=== PATIENT | female | born 1975 | race African-American/Black ===

== ENCOUNTER 2017-03-26 12:41 | Inpatient (IN) ==
[2017-03-26] MEDS ORDERED: NS 1,000 ML IV ONE (13:08)
[2017-03-26 13:54] LABS: URINE CULTURE PL NEEDED? NO
[2017-03-26 13:58] LABS: BILIRUBIN URINE NEGATIVE (NEGATIVE); BLOOD URINE 3+ (NEGATIVE); CLARITY CLEAR (CLEAR); COLOR YELLOW; GLUCOSE URINE NEGATIVE (NEGATIVE); LEUKOCYTES URINE NEGATIVE (NEGATIVE); NITRITE URINE NEGATIVE (NEGATIVE); PH URINE 6.5; PROTEIN URINE NEGATIVE (NEGATIVE); SP GRAVITY URINE 1.015; URINE SOURCE CLEAN CATCH; UROBILINOGEN URINE NORMAL
[2017-03-26 13:59] LABS: URINE EPITHELIAL CELLS <10 /HPF (<10); URINE RBC <10 /HPF (<10); URINE WBC <10 /HPF (<10)
[2017-03-26 14:15] LABS: BASO% 0.2 % (0.0-0.8); EOS# 0.23 X1000 (0.0-0.7); EOS% 3.9 % (0.0-10.0); HEMATOCRIT 28.6 % (37.0-47.0); HEMOGLOBIN 9.2 g/dL (12.0-16.0); IMM GRAN# 0.02 X1000 (0.0-0.04); IMM GRAN% 0.3 % (0.0-0.5); LYMPH# 2.07 X1000 (1.2-3.4); MANUAL DIFF NEEDED? NO; MCH 20.3 PG (27-31); MCHC 32.2 g/dL (33-37); MONO# 0.84 X1000 (0.11-0.59); MONO% 14.2 % (1.7-9.3); NEUT% 46.4 % (42.2-75.2); PLT 166 X1000 (130-400); RBC 4.54 XMIL (4.2-5.4)
[2017-03-26 14:21] LABS: AGAP 14; ALBUMIN 4.4 g/dL (3.5-5.0); ALKALINE PHOSPHATASE 52 U/L (32-104); AMYLASE 102 U/L (20-200); BUN 11 mg/dL (8-22); CHLORIDE 100 mmol/L (98-107); COSMO 271; GOT 51 U/L (10-30); GPT 39 U/L (10-36); LIPASE 64 U/L (13-60); SODIUM 136 mmol/L (136-145); TCO2 22 mmol/L (25-35); TOTAL PROTEIN 8.6 g/dL (6.3-8.3)
[2017-03-26 14:34] LABS: OCCULT BLOOD 1 POSITIVE (NEGATIVE)
--- NOTE | 2017-03-26 15:46 | Diag Imaging Result Doc PS360 ---
EXAM: CT ABD/PELVIS W/ IV CONT ONLY HISTORY: Lower GI bleed TECHNIQUE: Axial images of the abdomen and pelvis with IV contrast. Evaluation of the bowel is limited by lack of oral contrast. COMPARISON: 03/05/2015 FINDINGS: There is diffuse hepatic steatosis. There is a calcification posterior to the liver. There is an unchanged calcification left kidney. There is a phlebolith adjacent to the right proximal ureter which is unchanged from the prior study. There is a small fat-containing umbilical hernia. There is no free fluid or free air. The uterus is enlarged and lobular suggesting fibroids. There is no evidence for acute appendicitis..There is no colonic wall thickening or pericolonic inflammation appreciated. There remainder of the solid visceral organs is unremarkable there are calcifications within the upper pelvis bilaterally which likely represent phleboliths. IMPRESSION: No evidence for obstruction or acute bowel pathology given the limitations of the absence of oral contrast media. Hepatic steatosis. Fibroid uterus. Electronically signed by Emelia Maza 03/26/2017 3:43 PM
[2017-03-26 16:18] LABS: HEMATOCRIT 26.9 % (37.0-47.0); HEMOGLOBIN 8.7 g/dL (12.0-16.0)
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
[2017-03-26] MEDS ORDERED: ZOFRAN IV PRN (18:02)
[2017-03-26] MEDS ORDERED: PROTONIX 80 MG in NS 80 ML IV ONE ×2 (18:04→19:00)
[2017-03-26] MEDS ORDERED: PROTONIX 80 MG in NS 80 ML IV SCH (18:05)
[2017-03-26] MEDS ORDERED: PROTONIX IV SCH (18:15)
[2017-03-26] MEDS ORDERED: SODIUM CHLORIDE 0.9% INJ SCH (18:15)
[2017-03-26] MEDS: PROTONIX 80 MG in NS 80 ML IV SCH (19:35)
[2017-03-26] MEDS ORDERED: DULCOLAX PO ONE (20:40)
[2017-03-26] MEDS ORDERED: MIRALAX PO ONE ×2 (20:40→21:15)
[2017-03-26] MEDS ORDERED: SANDOSTATIN IV ONE (20:44)
[2017-03-26 20:53] LABS: HEMATOCRIT 26.5 % (37.0-47.0); HEMOGLOBIN 8.6 g/dL (12.0-16.0)
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
[2017-03-26 21:09] LABS: INR 0.97; PROTIME 10.2 Seconds (9.2-11.7); PTT 22.3 Seconds (22.0-36.0)
--- NOTE | 2017-03-26 21:39 | HISTORY AND PHYSICAL ---
CHIEF COMPLAINT: Diarrhea with bright red blood. HISTORY OF PRESENT ILLNESS: This is a 41-year-old female with no prior health history who presents to the emergency room complaining of diarrhea x2 days with bright red bleeding mixed in with the stool that started earlier today. She stated that she has had some abdominal cramps during these episodes of diarrhea, but it does subside once she has passed stool. She denies any prior history of GI bleed. She does state that she takes 4-6 Goody powders a day, sometimes more and she had this for quite a few years. She takes them for any pain sometimes, just to make sure she does not have pain. She denies any nausea, vomiting, reflux. She denies any dizziness on standing. She was found to have a hemoglobin of 9.2, hematocrit 28.6. On arrival to the emergency room. Hemoccult stool revealed red blood per ER MD. They did repeat a hemoglobin and hematocrit at 4 o'clock which was about 2-1/2 hours after, that was 8.7 and 26.9. PAST MEDICAL HISTORY: Denies. PAST SURGICAL HISTORY: Tubal ligation. SOCIAL HISTORY: She denies illicit drug use or tobacco use. She does drink 3 or 4 beers on the weekend, but not every week weekend. ALLERGIES: No known drug allergies. HOME MEDICATIONS: Goody powders. REVIEW OF SYSTEMS: A 14-point review of systems is discussed with patient with pertinent positives stated in the HPI. She denies chest pain, palpitations, dizziness, syncope, any nausea, vomiting, constipation, any shortness of breath, cough, fever, chills, hematuria, dysuria, frequency, urgency. PHYSICAL EXAMINATION: GENERAL: This is a 41-year-old female, who is lying in the bed, in no distress. VITAL SIGNS: Blood pressure is 119/75 with a heart rate of 106, respirations are 18, temperature is 98 degrees with room air saturations 96%. HEENT: Head is normocephalic, atraumatic. Pupils are equal, round, react to light. EOMs are intact. Sclerae are anicteric. Mucous membranes are moist. NECK: Supple with trachea midline. CARDIOVASCULAR: Regular rate and rhythm. S1 and S2 are appreciated. PULMONARY: Breath sounds are clear with no increased work of breathing noted. GASTROINTESTINAL: Abdomen is soft, nontender, nondistended with bowel sounds in all 4 quadrants. BACK: No CVAT. No spine tenderness. MUSCULOSKELETAL: Good range of motion to joints. NEUROLOGIC: She is alert and oriented x3 with cranial nerves 2-12 grossly intact. SKIN: Warm and dry with no rashes or lesions noted. DIAGNOSTICS: WBC is 5.9 with hemoglobin 9.2 and 28.6 at 1:30. At 4 o'clock, hemoglobin was 8.7 with hematocrit 26.9, platelets are 166,000. Sodium is 136, potassium 4, BUN 11, creatinine 0.8 with stool occult positive. ASSESSMENT AND PLAN: 1. Gastrointestinal bleed. 2. Diarrhea. 3. Abuse of Goody powders. PLAN: She will be admitted to CICU at [facility] [place]. She will remain nothing per oral. Dr. Smith in Gastroenterology has been consulted. We will type and cross and have 2 units on hand. We will repeat her hemoglobin and hematocrit at 8 o'clock and will trend. We will start a Protonix drip with a Protonix bolus. We will get a stat PT and PTT. We will gently hydrate. We will check orthostatics. Further treatments pending hospital course. Dictated by JESUS Kebede for Chavo Chino MD cc: JESUS Kebede MD
[2017-03-26] MEDS: SANDOSTATIN 500 MICROGM in D5W 100 ML IV SCH (21:43)
[2017-03-26] MEDS: NS 1,000 ML IV SCH (21:44)
[2017-03-27 01:47] LABS: HEMATOCRIT 23.8 % (37.0-47.0); HEMOGLOBIN 7.7 g/dL (12.0-16.0)
[2017-03-27] MEDS ORDERED: DULCOLAX PO ONE (02:00)
[2017-03-27] MEDS: PROTONIX 80 MG in NS 80 ML IV SCH ×2 (05:41→14:30)
[2017-03-27 05:54] LABS: HEMATOCRIT 24.4 % (37.0-47.0); HEMOGLOBIN 7.7 g/dL (12.0-16.0); MCHC 31.6 g/dL (33-37); MCV 66.5 FL (81-99); PLT 113 X1000 (130-400); RBC 3.67 XMIL (4.2-5.4)
[2017-03-27] MEDS: SANDOSTATIN 500 MICROGM in D5W 100 ML IV SCH ×3 (06:18→21:44)
[2017-03-27 06:26] LABS: AGAP 9; BUN 8 mg/dL (8-22); CALCIUM 8.5 mg/dL (8.8-10.2); CHLORIDE 99 mmol/L (98-107); COSMO 269; POTASSIUM 4.6 mmol/L (3.5-5.1); SODIUM 134 mmol/L (136-145); TCO2 26 mmol/L (25-35)
[2017-03-27] MEDS: NS 1,000 ML IV SCH ×2 (07:48→21:44)
[2017-03-27 09:19] LABS: HEMATOCRIT 25.6 % (37.0-47.0); HEMOGLOBIN 8.2 g/dL (12.0-16.0)
[2017-03-27 11:10] LABS: HEPATITIS PROFILE ACUTE SEE COMMENTS
[2017-03-27 13:45] LABS: HEMATOCRIT 24.6 % (37.0-47.0); HEMOGLOBIN 7.8 g/dL (12.0-16.0)
--- NOTE | 2017-03-27 16:56 | PROGRESS NOTE ---
DATE: 03/27/2017 SUBJECTIVE: Today Ms. Gamboa referred to be doing pretty fine. She said she feels a little dizzy, but otherwise has not had any more bowel movement. OBJECTIVE: Vital signs: Blood pressure 127/82, pulse of 78, respirations 18, temperature is 98.8 degrees. General Examination: Ms. Gamboa is a 41-year-old female. She is in bed. She did not seem to be in distress. HEENT: Mucosa is slightly pale. Anicteric. Acyanotic. Neck: Supple. Chest: Good air entry bilaterally. There is no crepitations or rhonchi. Cardiovascular: Regular rate and rhythm. There is no murmurs, no rubs, no gallops. Abdomen: Soft, nontender. Extremities: No pedal edema. FACILITY TECHNICIAN: Patient is awake, alert, and oriented x4. There is no focal neurological deficit. LABORATORY DATA: Hemoglobin is now down to 7.8, platelet count of 113,000. WBC is 5.98, sodium is 134, potassium is 4.6, chloride is 99, bicarb is 26. A CT scan of the abdomen, which was done, just showed hepatic steatosis. There is also uterine fibroids. No acute bowel pathology; however, it was limited because of absence of oral contrast. ASSESSMENT: 1. Symptomatic anemia. 2. Gastrointestinal bleed. 3. Diarrhea in the setting of Goody Powder abuse. 4. Alcohol abuse. She drinks 4 to 6 beers daily or maybe even more. watch out for withdrawal. I discussed with patients about cessation 5. Transaminitis on presentation. 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 Hepatic steatosis, likely from alcohol abuse. 7. Microcytic anemia, likely from iron deficiency. We will do the iron panel and go from there. I think Ms. Gamboa is clinically stable. She is NPO. She has been evaluated by Dr. Sarai Smith. She is pending an esophagogastroduodenoscopy and colonoscopy today. cc: Trung Wright MD MTDD
[2017-03-27 17:57] LABS: HEMATOCRIT 25.3 % (37.0-47.0); HEMOGLOBIN 7.9 g/dL (12.0-16.0)
[2017-03-27] MEDS ORDERED: DIPRIVAN 1% ONE ×5 (18:59→19:35)
[2017-03-27] MEDS ORDERED: XYLOCAINE-MPF 2% ONE (18:59)
[2017-03-27] MEDS ORDERED: FENTANYL ONE (19:19)
[2017-03-27] MEDS ORDERED: VERSED ONE (19:47)
[2017-03-27 21:31] LABS: HEMATOCRIT 24.2 % (37.0-47.0); HEMOGLOBIN 7.5 g/dL (12.0-16.0)
[2017-03-27] MEDS: CARAFATE PO SCH (21:44)
--- NOTE | 2017-03-27 23:17 | OPERATIVE NOTE ---
PROCEDURE DATE: 03/27/2017 REFERRING PHYSICIANS: Trung Wright MD INDICATION FOR PROCEDURE: 1. Hematochezia. 2. Anemia. 3. Nonsteroidal antiinflammatory drugs. PROCEDURE PERFORMED: Esophagogastroduodenoscopy. CONSENT: Informed consent was obtained from the patient prior to the procedure. The risks, benefits, and alternatives were discussed. MEDICATION: The patient received monitored anesthesia care. PERFORMING PHYSICIAN: Sarai Smith MD. ASSISTANTS: 1. ST. Dang 2. Emelia Agustin RN. 3. Belkis Luong CRNA. 4. Sha Duran MD (Anesthesia). COMPLICATIONS: There were no complications. It should be noted that the patient required an excessive amount anesthesia in order to be adequately sedated for the procedure. In addition, she showed signs of impending delirium tremors. ESTIMATED BLOOD LOSS: None. SPECIMENS REMOVED: None. FINDINGS: After sedation was achieved, the upper endoscope was inserted to the 2nd portion of the duodenum. The hypopharynx appeared endoscopically normal. The tubular esophagus was normal. There were no varices or Larson's esophagus appreciated. The GE junction was measured at 35 cm from the incisors. There was a hiatal hernia that spanned from 35-40 cm. In the gastric lumen, there was greater than 200 mL of gastric secretions consistent with gastric stasis. It should be noted that the gastric contents were witnessed refluxing into the mid esophagus. In the gastric lumen, there was a snake skin appearance to the gastric mucosa consistent with portal gastropathy. In the antrum, there were 2 whitish-based ulcers with no stigmata of bleeding. They ranged in size from 6-12 mm. On retroflexed view, there was the gastropathy, but no gastric varices were appreciated. The pylorus appeared endoscopically normal. In the duodenum, there was duodenitis in the 1st and 2nd portion of the duodenum. There were no ulcers or masses seen. After the exam was complete, the lumen was decompressed and the scope was removed without incident. IMPRESSION: 1. Witnessed esophageal reflux. 2. Hiatal hernia. 3. Gastric stasis. 4. Portal gastropathy. 5. Two antral ulcers with whitish bases and no stigmata of bleeding. 6. Scattered erosive gastritis. 7. Duodenitis. RECOMMENDATION: 1. Continue Protonix drip x72 hours and then transition to oral therapy. 2. Continue octreotide for 3 days and then stop. 3. Begin Carafate 1 g p.o. 4 times a day for 12 weeks and then stop. 4. I would recommend checking a gastric-emptying study some time during this admission. 5. The patient's behavior during the induction of sedation suggests that she has impending delirium tremors or withdrawal syndrome. Dr. Thibodeaux from the hospitalist service was notified and will assess the patient postprocedure. 6. We will plan to proceed with a colonoscopy as previously scheduled. cc: MD Trung Medrano MD
--- NOTE | 2017-03-27 23:24 | OPERATIVE NOTE ---
PROCEDURE DATE: 03/27/2017 REFERRING PHYSICIAN: Trung Wright MD INDICATIONS FOR PROCEDURE: 1. Hematochezia. 2. Anemia. 3. Nonsteroidal antiinflammatory drug use. PROCEDURE PERFORMED: Colonoscopy. CONSENT: Informed consent was obtained from the patient prior to the procedure. The risks, benefits, and alternatives were discussed. MEDICATIONS: The patient received monitored anesthesia care. PERFORMING PHYSICIAN: Sarai Smith MD. ASSISTANTS: 1. ST. Dang 2. Emelia Abel RN. 3. Belkis Luong CRNA. 4. Sha Duran MD (Anesthesia). COMPLICATIONS: There were no complications. ESTIMATED BLOOD LOSS: 1 to 2 mL from bleeding hemorrhoids. SPECIMENS REMOVED: None. FINDINGS: After the EGD was performed, the patient was repositioned. The pediatric colonoscope was inserted to the terminal ileum. The terminal ileum appeared endoscopically normal. Upon insertion of the scope, there was a rectum filled with blood. The blood continued to about 40 cm from insertion. The scope was advanced to the terminal ileum where the mucosa appeared normal. Upon withdrawal of the scope, the ileocecal valve, appendiceal orifice, and cecum appeared endoscopically normal. The colonic mucosa in the ascending, transverse, and descending colon was also normal. Beginning in the sigmoid colon, there were blood-tinged membranes, but no actively bleeding lesion. There was dimpling and early diverticulosis in the sigmoid colon. There is no evidence of diverticulitis. In the rectum, there was a superficial rectal ulcer with no active bleeding. There were grade 2 internal hemorrhoids in the upper rectum. On retroflexed view, there were actively bleeding external hemorrhoids with prolapse of the hemorrhoidal tissue. After the exam was complete, the lumen was decompressed. Hemostasis was achieved with water flushes and no further intervention was performed at this time. CECAL INTUBATION: 7 minutes. WITHDRAWAL TIME: 16 minutes. PREPARATION QUALITY: Fair. RECOMMENDATION: 1. In light of the actively bleeding hemorrhoids, I spoke with Ivan Pena MD from Surgery who will evaluate the patient in the morning. 2. In the antrum, begin Anusol HC suppositories, 1 per rectum 3 times a day. 3. In light of the patient's impending delirium tremens, I have kept her NPO. She will be assessed by the primary service. Once she has been assessed by the Primary Service, her diet may be advanced as clinically indicated. cc: MD Trung Medrano MD
[2017-03-28] MEDS ORDERED: ZOFRAN IV PRN (01:08)
[2017-03-28] MEDS ORDERED: SODIUM CHLORIDE 0.9% INJ SCH (01:15)
[2017-03-28 01:35] LABS: HEMATOCRIT 23.7 % (37.0-47.0); HEMOGLOBIN 7.5 g/dL (12.0-16.0)
[2017-03-28] MEDS: SANDOSTATIN 500 MICROGM in D5W 100 ML IV SCH ×3 (01:50→11:10)
[2017-03-28] MEDS: PROTONIX 80 MG in NS 80 ML IV SCH ×3 (01:50→22:57)
[2017-03-28] MEDS: NS 1,000 ML IV SCH ×4 (04:13→17:35)
[2017-03-28 05:34] LABS: EOS# 0.17 X1000 (0.0-0.7); EOS% 3.4 % (0.0-10.0); IMM GRAN# 0.02 X1000 (0.0-0.04); IMM GRAN% 0.4 % (0.0-0.5); LYMPH# 1.48 X1000 (1.2-3.4); LYMPH% 29.5 % (20.5-51.1); MANUAL DIFF NEEDED? NO; MCH 20.3 PG (27-31); MCHC 30.4 g/dL (33-37); MCV 66.7 FL (81-99); MONO# 0.68 X1000 (0.11-0.59); MONO% 13.5 % (1.7-9.3); NEUT% 53.2 % (42.2-75.2); PLT 124 X1000 (130-400); RBC 3.45 XMIL (4.2-5.4)
[2017-03-28 05:41] LABS: AGAP 10; BUN 5 mg/dL (8-22); CALCIUM 8.5 mg/dL (8.8-10.2); CHLORIDE 103 mmol/L (98-107); COSMO 272; POTASSIUM 4.4 mmol/L (3.5-5.1); SODIUM 137 mmol/L (136-145); TCO2 24 mmol/L (25-35)
--- NOTE | 2017-03-28 06:50 | EKG Report ---
Test Performed on : 03/28/2017 02:45:29 AM Test Reason : NO ORDER Blood Pressure : / mmHG Vent. Rate : 058 BPM Atrial Rate : 070 BPM P-R Int : 000 ms QRS Dur : 076 ms QT Int : 416 ms P-R-T Axes : 025 014 015 degrees QTc Int : 408 ms Sinus rhythm. with 2nd degree AV block (Mobitz I). Abnormal ECG No previous ECGs available Confirmed by Jacques CUMMINGS, Sesar Orr ([id number]) on 03/28/2017 11:56:18 AM
[2017-03-28 07:21] LABS: IRON SATURATION 8 %; TIBC 359 ug/dL; TOTAL IRON 30 ug/dL (49-151); UNBOUND IRON 329 ug/dL (112-346)
[2017-03-28] MEDS: ANUSOL-HC SUPP PR SCH ×3 (08:31→17:35)
[2017-03-28] MEDS: CARAFATE PO SCH ×4 (08:32→21:02)
[2017-03-28 09:09] LABS: HEMATOCRIT 24.9 % (37.0-47.0); HEMOGLOBIN 7.8 g/dL (12.0-16.0)
--- NOTE | 2017-03-28 10:26 | CONSULTATION ---
DATE OF CONSULTATION: 03/28/2017 REASON FOR CONSULTATION: Cardiology was consulted for abnormal EKG. HISTORY OF PRESENT ILLNESS: Ms. Jillian Gamboa is a 41-year-old Afro-[place] lady who has been in the emergency room on 03/20/2017 for upper respiratory tract infection. She was then prescribed Zithromax and Z-Mark. She felt well, but developed nausea, vomiting, and diarrhea. She came to the emergency room, was noted to have bright red blood in her stools. Has been taking Goody powders as well, and had rectal bleeding, and Gastroenterology was consulted. Patient underwent a colonoscopy and had a bleeding hemorrhoids, and started on octreotide. She also has anemia. Gastroenterology has been following the patient. From a cardiac standpoint, no anginal symptoms. No previous cardiac history. Does not complain of any palpitations or dizziness. REVIEW OF SYSTEMS: A 14 point review of systems was done. GI System: As above. Respiratory System: As above. System: There is no dysuria or hematuria. Cardiovascular system: As above. Endocrine System: Stable. PAST MEDICAL HISTORY: 1. Recent respiratory tract infection. 2. Alcohol abuse. 3. Abnormal liver function tests. 4. Tubal ligation. SOCIAL HISTORY: She drinks 3-4 beers on the weekends. There is no history of illicit drug abuse. She uses Goody Powders as well. PHYSICAL EXAMINATION: Vital Signs: Blood pressure 119/75. Cardiovascular System: Normal jugular venous pressure. There no thyromegaly. No carotid bruit. First and second heart sounds heard. There is no S3 gallop. Respiratory System: Normal air entry. There is no crepitations or rhonchi. Abdomen: Soft, nontender. There was no guarding or rigidity. Bowel sounds were heard. Central nervous system: Alert and oriented, moving all 4 extremities. Extremities: Examination of extremities revealed no pedal edema. HEENT: Atraumatic, normocephalic. Pupils were equal and reacting to light. LABORATORY DATA: Today hemoglobin 7.0, hematocrit, 23 platelet count of 124. Chemistry: Sodium 137, potassium 4.4, BUN 5, creatinine 0.6. LFTs are borderline abnormal at AST 51, ALT 39. ASSESSMENT AND PLAN: Ms. Jillian Gamboa is a 41-year-old Afro-[place] lady, who has a history of alcohol abuse, is admitted with having had recent respiratory tract infection and lower gastrointestinal bleed, has undergone colonoscopy. She has bleeding hemorrhoids. Surgery has been consulted from a cardiac standpoint. We will get an echocardiogram to assess cardiac and valvular function. Her electrocardiogram revealed Wenckebach type 1 block, bradycardia as well. She has no previous cardiac history. She is on octreotide, and octreotide side-effects include bradycardia, Q-T prolongation, as well as a EKG changes in 10% of patients. Would recommend stopping the octreotide. I have not made any other changes to her medications. Thank you for the consult. We will follow hospital course. cc: Sergio Norwood MD
[2017-03-28 15:40] LABS: HEMATOCRIT 23.9 % (37.0-47.0); HEMOGLOBIN 7.3 g/dL (12.0-16.0)
--- NOTE | 2017-03-28 17:07 | PROGRESS NOTE ---
DATE: 03/28/2017 SUBJECTIVE: This morning, Ms. Gamboa referred to be doing a little better. Denies of any acute problem. According to her, she has not had anymore bowel movement and she had her procedures done yesterday. OBJECTIVE: Vital signs: Blood pressure is 131/61, pulse of 90, respirations 18 , temperature 98.3 degrees. General: Ms. Gamboa is a 41-year-old female. She is in bed. She is not in any distress. HEENT: Mucosa is slightly pale. Anicteric. Acyanotic. Neck: Supple. Chest: Clear. Cardiovascular: Regular rate and rhythm. There is no murmurs. No rubs, no gallops. Abdomen: Soft, nontender. Bowel sounds are present. Extremities: No pedal edema. PAINT FORMULATOR: Patient is awake and alert and oriented. There is no focal neurological deficit. LABORATORY DATA: Hemoglobin is 7.8. Chemistry is reviewed. It is completely unremarkable. Iron studies were done this morning shows a ferritin of 17. EGD was done yesterday which shows hiatal hernia. Gastric stasis, portal gastropathy. There are 2 antral ulcer with whitish base. Scattered erosive gastritis and duodenitis. Colonoscopy showed superficial rectal ulcer. No active bleeding. There is grade 2 internal hemorrhoids in the upper rectum. There was also actively bleeding external hemorrhoids with prolapse of the hemorrhoidal tissue. Of note, last night the patient had some abnormalities on the telemetry monitoring. EKG did show Wenckebach phenomenon. ASSESSMENT: 1. Symptomatic anemia secondary to GI bleed. The patient is status post EGD and colonoscopy. 2. Active hemorrhoidal bleed. We will continue with the GI and surgery recommendations. 3. Alcohol abuse with possible withdrawal symptoms in the OR yesterday 4. Alcohol-induced hepatopathy. 5. Hepatic steatosis. Likely from alcohol abuse. 6. Iron deficiency anemia which is secondary to chronic blood loss from the hemorrhoids and menorrhagia. 7. Portal gastropathy on EGD. We will continue with the PPI and octreotide. 8. New onset of type Wenckebach AV block. We are not quite sure if this is due to octreotide. Patient is not overtly cirrhotic. We would discuss with the GI doctor if octreotide can be discontinued because of the Wenckebach phenomenon. The patient has been evaluated by Cardiology. They also have a similar recommendation and they are doing an echocardiogram to check on the heart. cc: Trung Wright MD MTDD
[2017-03-28 17:46] LABS: HEMATOCRIT 25.4 % (37.0-47.0); HEMOGLOBIN 7.7 g/dL (12.0-16.0)
--- NOTE | 2017-03-28 18:38 | ECHO REPORT ---
ORDER DATE: 03/28/2017 INTERPRETING PHYSICIAN: Dr. Pearson REQUESTING PHYSICIAN: CLINICAL INDICATIONS: Bradycardia. M-MODE MEASUREMENTS: Right ventricle: 3.4 cm. Left ventricle end diastole: 4.2 cm. Left ventricle end systole: 2.6 cm. Posterior wall: 1.2 cm. Interventricular septum: 1.2 cm. Left atrium: 4.2 cm. Aortic root: 2.6 cm. Right atrium: 3.7 cm. SUMMARY OF 2-DIMENSIONAL IMAGING: The left ventricular function is normal. Ejection fraction 70%. The chamber is moderately enlarged. The mitral valve shows a mild degree of regurgitation. Pulse wave Doppler of mitral inflow is normal with normal ratio. Tissue Doppler of septal and lateral mitral annulus averages 13 cm per second. Pulmonary venous flow is normal. There is no diastolic dysfunction. The aortic valve looks normal. Color flow mapping unremarkable. The pulmonic valve looks normal. Color flow mapping indicates a mild degree of regurgitation. The tricuspid valve shows a mild degree of regurgitation. The inferior vena cava is not dilated. Pulmonary pressure estimated at 31 mmHg. The aortic valve has 3 cusps. They open normally. Color flow mapping unremarkable. There is no pericardial effusion, masses or thrombus. IMPRESSION: In summary, this study shows: 1. Normal left ventricular systolic function. 2. Pulmonary pressure of 31 mmHg. 3. Normal diastolic function. 4. No evidence of any significant valvular abnormality. Clinical correlation recommended. cc: MD Sergio Long MD
[2017-03-28 18:48] LABS: UR AMPHETAMINES QUAL NONE DETECTED (NONE DETECT); UR BARBITUATES QUAL NONE DETECTED (NONE DETECT); UR BENZODIAZEPIN QUAL PRESUMPTIVE POSITIVE (NONE DETECT); UR CANNABINOIDS QUAL NONE DETECTED (NONE DETECT); UR COCAINE QUAL NONE DETECTED (NONE DETECT); UR METHADONE QUAL NONE DETECTED (NONE DETECT); UR OPIATES QUAL NONE DETECTED (NONE DETECT); UR OXYCODONE QUAL NONE DETECTED (NONE DETECT); UR PCP QUAL NONE DETECTED (NONE DETECT)
[2017-03-28 21:43] LABS: HEMATOCRIT 24.2 % (37.0-47.0); HEMOGLOBIN 7.6 g/dL (12.0-16.0)
--- NOTE | 2017-03-28 22:08 | CONSULTATION ---
DATE OF CONSULTATION: 03/28/2017 SURGEON CONSULTED: Ivan Pena MD. REQUESTING PHYSICIAN: Sarai Smith MD. REASON FOR CONSULTATION: Bleeding hemorrhoids. HISTORY OF PRESENT ILLNESS: This is a 41-year-old female who presented to the hospital with bloody bowel movements over the last 3 days. The blood has been described as dark maroon and bright red with some clots mixed in. She denies abdominal pain, nausea, vomiting, fever, chills, or other systemic complaints. She underwent colonoscopy last night which showed rectum full of blood, however, after this was cleaned out the scope was advanced to the cecum. The colon appeared normal except for some diverticulosis in the sigmoid and a rectal ulcer which is not bleeding. She did have what was described as external hemorrhoids and some prolapsing hemorrhoids that were bleeding. Since that time she has not had any further blood per rectum overnight or this morning. PAST MEDICAL HISTORY: None. PAST SURGICAL HISTORY: None. HOME MEDICATIONS: None. ALLERGIES: No known drug allergies. FAMILY HISTORY: Reviewed and noncontributory. SOCIAL HISTORY: She denies tobacco or illicit drug use. She does admit to drinking 3-4 beers per day. REVIEW OF SYSTEMS: Ten systems were reviewed and negative except as noted above. PHYSICAL EXAMINATION: Vital Signs: She is afebrile. Her vital signs are stable. General: She is awake, alert, in no acute distress. She is oriented x3. HEENT: Normocephalic, atraumatic. Extraocular muscles intact. Pupils equal, round, reactive to light. Sclerae anicteric. Moist mucous membranes. Hearing grossly normal. No oral lesions. Neck: Supple. No thyromegaly. Cardiovascular: Regular rate and rhythm. Respiratory: No work of breathing, Gastrointestinal: Soft, nontender, nondistended, no organomegaly or mass. Rectal: She does have prolapsing internal and external hemorrhoids but there is no blood seen. There is no tenderness or fissures seen either. Extremities: No clubbing, cyanosis, or edema. Skin: Warm and dry. No rash. Musculoskeletal: Moves all extremities equally and well. LABORATORY: Her labs were reviewed and notable for H and H that is stable overnight. Her hematocrit has consistently been 23-24 on the last few checks. ASSESSMENT/PLAN: A 41-year-old female with lower gastrointestinal bleed secondary to hemorrhoids. This appears to have stopped. I am available as needed but she can follow up with me as an outpatient for elective hemorrhoidectomy in the future if she desires. I recommended stool softeners, fiber and avoidance of prolonged sitting. cc: Ivan Pena MD
--- NOTE | 2017-03-28 22:58 | PROGRESS NOTE ---
DATE: 03/28/2017 HISTORY OF PRESENT ILLNESS: The patient feels better today. She has had no further bleeding episodes. However, she was noted to have Wenckebach heart block. It is thought to be secondary to the octreotide. Her exam is unchanged. Her hemoglobin remains stable and there has been no recurrent bleeding overnight. However, her affect and behavior have been somewhat peculiar according to the nursing staff. OBJECTIVE: General: She is hyper animated in no acute distress. Vital signs: Her blood pressure is 140/81, pulse 71, respiration 18, temperature of 98.3 degrees. Lungs: Are clear to auscultation with normal expiratory effort. Cardiovascular: Reveals regular rate and rhythm with no gallops or rubs. Abdominal Exam: Reveals normoactive bowel sounds. The abdomen is soft, nontender with no rebound or guarding. OBJECTIVE DATA: Reveals a hemoglobin of 7.0 with hematocrit of 23 and a white count of 5.02 with 124,000 platelets this morning. Her serum chemistries are 137, potassium 4.4, chloride 103, CO2 24, BUN 5, creatinine 0.6 with a glucose 116 and a calcium of 8.5. Iron is 30 with a ferritin of 17. RECOMMENDATION: 1. The patient was evaluated by Dr. Ivan Pena for possible hemorrhoid repair. I will defer to him for management of the bleeding hemorrhoids. 2. The patient was noted to have cardiac arrhythmias that might be associated with octreotide. There are multiple case reports associating octreotide with Wenckebach. However, it should be noted that the patient had desaturation, extremely bizarre behavior and possible transient heart block in the GI procedure area prior to the start of her procedure. The arrhythmia resolved within a matter of seconds and the procedure was completed as scheduled. I agree with the cardiac workup. 3. The patient has significant anemia. She will most likely require transfusion this admission especially given that her hemoglobin is at 7. I will defer to the primary team before her transfusion. 4. Continue Protonix drip as you are doing. 5. Continue Carafate for 12 weeks and then stop. 6. Continue Anusol HC suppositories for the inflamed hemorrhoids. cc: Ivan Pena MD
[2017-03-29] MEDS: NS 1,000 ML IV SCH ×2 (06:51→18:14)
[2017-03-29] MEDS: ANUSOL-HC SUPP PR SCH ×3 (08:25→17:09)
[2017-03-29] MEDS: CARAFATE PO SCH ×4 (08:25→20:49)
[2017-03-29] MEDS ORDERED: VENOFER IV ONE (08:52)
[2017-03-29] MEDS: PROTONIX 80 MG in NS 80 ML IV SCH (08:55)
[2017-03-29] MEDS ORDERED: VENOFER 300 MG in NS 250 ML IV ONE (10:00)
--- NOTE | 2017-03-29 13:01 | PROGRESS NOTE ---
DATE: 03/29/2017 SUBJECTIVE: Today, Ms. Gamboa refers to be doing a little better. Completely asymptomatic. No dizziness. Has not had any more symptoms suggestive of withdrawal. However, patient's telemonitor continues to Wenckebach phenomenon sporadically. OBJECTIVE: Vital signs: Blood pressure is 132/76, pulse is 68, respirations 18, temperature is 98.5 degrees. Patient is saturating 100% on room air. General: Ms. Gamboa this is a 41-year- old female. She is in bed. She is not in any distress. Mucosa is slightly pale but anicteric and acyanotic. Neck: Supple. Chest: Good air entry bilateral. There are no crepitations. No rhonchi. Cardiovascular: Regular rate and rhythm. No murmurs, no rubs. No gallops. Abdomen: Soft, nondistended. There is no hepatosplenomegaly. Extremities: No pedal edema. Distal pulses are present. CTRS: Patient is awake, alert, oriented. There is no focal neurological deficit. LABORATORY DATA: There is no lab work for today. The last hemoglobin and hematocrit which was done yesterday at about 2110 hours 7.6. Patient denies any active bleeding. ASSESSMENT: 1. Symptomatic anemia on presentation, secondary to GI bleed. Patient is status post EGD and colonoscopy. 2. Active hemorrhoidal bleed. The patient has been evaluated by surgery. No immediate plan for inpatient surgery. They plan to review the patient on outpatient basis. 3. Alcohol abuse with possible withdrawal symptoms in the OR. The patient seems to be completely stable. We would continue observing. We will use p.r.n. lorazepam if she needs it. 4. Alcohol induced hepatopathy. 5. Hepatic steatosis on imaging. Likely from alcohol abuse. Patient has been advised. 6. Iron deficiency anemia. Etiology is multifactorial including chronic GI blood loss as well as menorrhagia. We will going to give the patient an infusion of iron. Hemoglobin seems to be above 7 so I would not transfuse PRBC at this point, I will however replace her iron with infusion at this time. 7. Portal hypertensive gastropathy on EGD. We will continue with proton pump inhibitors. Octreotide has been discontinued. 8. Wenckebach AV block. Patient continues to have in and out Wenckebach; however, she remains completely asymptomatic so we will just continue observing. Cardiology is also involved. I think clinically Ms. Gamboa seems to be doing pretty fine. She is stable. We are going to continue telemonitoring for the Wenckebach AV block. We would also continue with the PPI and give her 1 infusion of iron and go from there. cc: Trung Wright MD
--- NOTE | 2017-03-29 13:54 | PROGRESS NOTE ---
DATE: 03/29/2017 SUBJECTIVE: The patient demonstrated some marked sinus bradycardia while asleep but heart rate comes back up when she is awakened. She is ambulating in the room without dizziness. She denies chest discomfort or dyspnea. OBJECTIVE: Vital Signs: Blood pressure 132/79, heart rate 68 and regular. Oxygen saturation 100% on room air. Chest is clear to auscultation. Cardiac exam reveals a regular rate and rhythm without appreciable murmur or gallop. Extremities are without edema. Echocardiography indicates normal left ventricular function without significant valvular abnormality. IMPRESSION: 1. Transient bradycardia probably vagally mediated. Patient asymptomatic from a cardiovascular standpoint. 2. Recent lower gastrointestinal bleed. 3. Alcohol abuse. RECOMMENDATIONS: Continue to monitor on telemetry as the patient mobilizes. cc: Talon Guardado MD
[2017-03-29] MEDS ORDERED: PROTONIX IV SCH (18:05)
[2017-03-29] MEDS: PROTONIX IV SCH (20:55)
[2017-03-30 06:08] LABS: BASO% 0.2 % (0.0-0.8); EOS# 0.08 X1000 (0.0-0.7); EOS% 1.6 % (0.0-10.0); HEMATOCRIT 22.1 % (37.0-47.0); HEMOGLOBIN 6.8 g/dL (12.0-16.0); IMM GRAN# 0.03 X1000 (0.0-0.04); IMM GRAN% 0.6 % (0.0-0.5); LYMPH# 1.79 X1000 (1.2-3.4); LYMPH% 36.5 % (20.5-51.1); MANUAL DIFF NEEDED? YES; MCH 20.9 PG (27-31); MCHC 30.8 g/dL (33-37); MONO# 0.72 X1000 (0.11-0.59); MONO% 14.7 % (1.7-9.3); NEUT% 46.4 % (42.2-75.2); PLT 168 X1000 (130-400); RBC 3.25 XMIL (4.2-5.4)
[2017-03-30 06:26] LABS: LYMPHS 32 % (21-51); MONO 4 % (1-9)
[2017-03-30 06:27] LABS: AGAP 11; ALBUMIN 3.6 g/dL (3.5-5.0); ALKALINE PHOSPHATASE 40 U/L (32-104); BUN 7 mg/dL (8-22); CALCIUM 8.2 mg/dL (8.8-10.2); CHLORIDE 105 mmol/L (98-107); COSMO 277; GOT 64 U/L (10-30); GPT 37 U/L (10-36); POTASSIUM 3.6 mmol/L (3.5-5.1); SODIUM 140 mmol/L (136-145); TCO2 24 mmol/L (25-35); TOTAL BILIRUBIN 0.15 mg/dL (0.20-1.00); TOTAL PROTEIN 6.4 g/dL (6.3-8.3)
[2017-03-30 06:28] LABS: HYPOCHROM OCCASIONAL; TARGET CELLS 2+
[2017-03-30] MEDS: NS 1,000 ML IV SCH ×2 (08:20→21:23)
[2017-03-30] MEDS: CARAFATE PO SCH ×4 (08:23→21:22)
[2017-03-30] MEDS: PROTONIX IV SCH (08:23)
[2017-03-30] MEDS: ANUSOL-HC SUPP PR SCH ×3 (08:23→21:23)
--- NOTE | 2017-03-30 15:32 | PROGRESS NOTE ---
DATE: 03/30/2017 SUBJECTIVE: Today, Ms. Gamboa referred to be doing a little better. Actually denies any complaint. She refers that she has been having her menses since 3 days ago. No hemorrhoidal bleed and no melanotic stool. OBJECTIVE: Vital signs: Blood pressure is 133/74, pulse of 70, respiration is 18, temperature 98.6 degrees. General: Ms. Gamboa is a 41-year-old, female. She is in bed. She is not in any distress. HEENT: Mucosa is pink and moist. Anicteric. Acyanotic. Neck: Supple. Chest: Clear. Cardiovascular: Regular rate and rhythm. There is no murmurs, no rubs, no gallops. Abdomen: Soft, is nontender. There is no hepatosplenomegaly. Extremities: No pedal edema. Distal pulses are present. Central nervous system: The patient is awake and alert and oriented. There is no focal neurological deficit. LABORATORY DATA: WBC is 4.91, hemoglobin is 6.8, platelet count of 168,000. Chemistries reviewed. Completely unremarkable. Liver enzymes a little bit elevated, consistent with alcohol- induced hepatic injury. Hepatitis panel is negative. ASSESSMENT: 1. Symptomatic anemia on presentation, secondary to gastrointestinal blood loss. The patient is status post EGD and colonoscopy today. Today hemoglobin and hematocrit dropped to 6.8. Would, therefore, group and crossmatch and transfuse her 2 units of PRBC. 2. External hemorrhoidal bleed. The patient has been evaluated by Surgery. There is a plan for outpatient intervention. 3. Alcohol abuse with possible withdrawal symptoms in the operating room. The patient is clinically stable. 4. Alcohol-induced hepatopathy noted. 5. Hepatic steatosis on imaging, likely from alcohol abuse. The patient has been advised. 6. Iron deficiency anemia, likely secondary to chronic blood loss from gastrointestinal, as well as menorrhagia due to Uterine Fibroids. Needs OBGYN follow up. The patient was given an infusion of iron yesterday; however, hemoglobin is also ridiculously low today, so we are going to give her PRBC transfusion. 7. Portal hypertensive gastropathy on esophagogastroduodenoscopy. The patient was on PPI drip and octreotide. These have been discontinued. She is currently on b.i.d. PPI. 8. Wenckebach atrioventricular block. Cardiology is involved. This is an on- and-off phenomena, and the patient is completely asymptomatic. So, today we are going to transfuse the patient 2 PRBC, repeat her hemoglobin and hematocrit for tomorrow. If it is stable, we will be able to discharge her first thing in the morning tomorrow. cc: Trung Wright MD MTDD
--- NOTE | 2017-03-30 16:59 | PROGRESS NOTE ---
DATE: 03/30/2017 SUBJECTIVE: The patient states that she is feeling better today. She has had brown stools. She denies abdominal pain. She is tolerating a GI soft diet without difficulty; however, overnight, her hemoglobin dropped to 6.8, with a hematocrit of 22.1. OBJECTIVE: Vital signs: On exam, her blood pressure is 139/91, pulse 64, respiration 18, temperature of 98 degrees. Abdominal: Reveals normoactive bowel sounds. The abdomen is soft and nontender. rectal: Exam reveals nonbleeding hemorrhoids. There was brown stool in the rectal vault. RECOMMENDATION: 1. The patient has become progressively more anemic each day. I suspect that we have not caught up with her initial blood loss. Therefore, I recommend transfusions as you are doing. 2. Continue Protonix 40 mg twice a day. 3. Continue Anusol HC, but I will reduce the dose to twice daily. 4. Continue Carafate for the bleeding ulcers. 5. Continue transfusions as indicated, based on hemoglobin and hematocrit. 6. Continue serial monitoring of her blood levels. 7. I agree with iron sulfate twice a day. 8. I will add vitamin C 500 mg twice daily to help with iron absorption. 9. We await her gastric emptying study in the morning. 10. Additional recommendations to follow, based on her clinical course. cc: MD Sarai Balderas MD
[2017-03-30] MEDS: FERROUS SULFATE PO SCH (21:22)
[2017-03-30] MEDS: PROTONIX PO SCH (21:22)
[2017-03-30] MEDS: COLACE PO SCH (21:22)
[2017-03-30] MEDS: VITAMIN C PO SCH (21:22)
[2017-03-31 05:44] LABS: AGAP 9; BUN 10 mg/dL (8-22); CALCIUM 8.3 mg/dL (8.8-10.2); CHLORIDE 104 mmol/L (98-107); COSMO 274; POTASSIUM 3.8 mmol/L (3.5-5.1); SODIUM 138 mmol/L (136-145); TCO2 25 mmol/L (25-35)
[2017-03-31 06:37] LABS: BASO% 0.2 % (0.0-0.8); EOS# 0.11 X1000 (0.0-0.7); EOS% 1.8 % (0.0-10.0); HEMATOCRIT 26.2 % (37.0-47.0); HEMOGLOBIN 8.4 g/dL (12.0-16.0); IMM GRAN# 0.05 X1000 (0.0-0.04); IMM GRAN% 0.8 % (0.0-0.5); LYMPH# 2.11 X1000 (1.2-3.4); LYMPH% 34.1 % (20.5-51.1); MANUAL DIFF NEEDED? YES; MCH 22.9 PG (27-31); MCHC 32.1 g/dL (33-37); MCV 71.4 FL (81-99); MONO# 0.96 X1000 (0.11-0.59); MONO% 15.5 % (1.7-9.3); NEUT% 47.6 % (42.2-75.2); PLT 182 X1000 (130-400); RBC 3.67 XMIL (4.2-5.4)
[2017-03-31 08:06] LABS: BANDS 1 % (0-1); EOS 1 % (1-10); HYPOCHROM 1+; LYMPHS 30 % (21-51); MONO 9 % (1-9); POLYCHROM 1+
--- NOTE | 2017-03-31 15:16 | Diag Imaging Result Doc PS360 ---
EXAM: GASTRIC EMPTYING HISTORY: nausea with vomiting TECHNIQUE: Gastric emptying study, 539 uCi of technetium 99m sulfur colloid in egg biscuit COMMENT: The half-time of gastric emptying is calculated by linear fit at 112.3 minutes which is above the normal range. IMPRESSION: Slightly delayed gastric emptying. Electronically signed by Endy Sandy 03/31/2017 3:13 PM
[2017-03-31] MEDS: ANUSOL-HC SUPP PR SCH (15:42)
[2017-03-31] MEDS: CARAFATE PO SCH ×2 (15:42)
[2017-03-31] MEDS: COLACE PO SCH (15:42)
[2017-03-31] MEDS: FERROUS SULFATE PO SCH (15:43)
[2017-03-31] MEDS: PROTONIX PO SCH (15:43)
[2017-03-31] MEDS: VITAMIN C PO SCH (15:43)
[2017-03-31] MEDS ORDERED: REGLAN PO SCH (16:00)
[2017-03-31 16:19] VITALS: BP 131/81
--- NOTE | 2017-03-31 18:44 | DISCHARGE SUMMARY ---
ADMISSION DATE: 03/26/2017 DISCHARGE DATE: 03/31/2017 DISPOSITION: Home. FOLLOW-UP: 1. Dr. Sarai Smith. 2. Primary care physician. 3. The patient is also advised to follow up with an NURSERY WORKER. CONSULTATION: 1. Cardiology was consulted. Patient was seen by Sergio Norwood MD. 2. Gastroenterology was consulted. Patient was seen by Sarai Smith MD. INVASIVE PROCEDURES DONE DURING THIS ADMISSION: An EGD was done by Dr. Smith which showed esophageal reflux, hiatal hernia, gastric stasis, portal gastropathy. A colonoscopy was done which showed some rectal hemorrhoids. IMAGING STUDIES OF SIGNIFICANCE: 1. A CT scan of the abdomen and pelvis was done which showed no evidence of obstructive or acute bowel pathology. There was hepatic steatosis and fibroid uterus. 2. An echocardiogram was done that shows normal left ventricular systolic function. Normal diastolic function. 3. A gastric empty study was done that shows slightly delayed gastric empty study. ADMISSION DIAGNOSES: 1. Gastrointestinal bleed. 2. Diarrhea. 3. Abuse of Goody powders. DIAGNOSIS AT THE TIME OF DISCHARGE: 1. Symptomatic anemia on presentation, secondary to gastrointestinal blood loss. 2. External hemorrhoidal bleed. 3. Alcohol abuse with possible withdrawal symptoms in the operating room. 4. Alcohol-induced hepatopathy. 5. Hepatic steatosis secondary to alcohol abuse. 6. Iron deficiency anemia secondary to chronic blood loss from gastrointestinal blood loss and also menorrhagia due to uterine fibroids. 7. Portal hypertensive gastropathy on esophagogastroduodenoscopy. 8. Wenckebach atrioventricular block, asymptomatic. 9. Mild gastroparesis. PRESENT DISCHARGE MEDICATIONS: 1. Vitamin C 500 b.i.d. 2. Docusate 100 mg b.i.d. 3. Ferrous sulfate 325 b.i.d. 4. Hydrocortisone. 5. Anusol cream. 6. Pantoprazole 40 mg b.i.d. 7. Reglan 5 mg 3 times per day. 8. Carafate 1 g p.o. q.6. PRESENTING COMPLAINT: Diarrhea with bright red blood. HISTORY OF PRESENTING COMPLAINT: Ms. Gamboa is a 41-year-old female who presented to the Emergency Department on the [facility] because of diarrhea with bright red blood. Patient was evaluated and was found to be anemic; however, during the hospital course, blood count continues to be declined and because of the need of GI evaluation, she was transferred from [place] to [place]. HOSPITAL COURSE: The patient did pretty well. She was transfused 2 PRBC. Hemoglobin and hematocrit got stabilized. She had an EGD and colonoscopy. Surgery was consulted because of external hemorrhoids. Patient was seen by Dr. Pena. A decision was made to evaluate her on an outpatient basis. Dr. Smith thought that the patient could have gastroparesis. So she ordered gastric emptying studies which were successfully done. She only showed some mild disease. The patient was put on metoclopramide and side effects were explained to her and she will follow up with Dr. Smith. The patient was found also to have uterine fibroids and according to her, she has menorrhagia, so she was advised to follow up with an NURSERY WORKER. Patient today is clinically stable, completely asymptomatic. Hemoglobin and hematocrit are stable. She is going to be discharged in a very stable condition. She will follow up with Dr. Smith I understand April 04. TIME SPENT FOR DISCHARGE: 35 minutes. cc: Trung Wright MD
[2017-03-31] MEDS ORDERED: CARAFATE LIQUID PO SCH (20:00)
== END 2017-03-31 18:30 | disposition home or self-care (01) ==
LOC: P.ED 12:41 → SUATTDRO 12:42 → EDIPHOLD 18:39 → 3S 19:08
PROVIDERS: ATTEND Internal Medicine